=== PATIENT | female | born 1965 | race Caucasian/White ===

== ENCOUNTER 2021-02-20 19:26 | Inpatient (IN) | payer SELFPAY ==
[~2021-02-20 19:26] MED LIST: Iopamidol-370 76% 500 ML 1 ML ONE
[2021-02-20 19:48] LABS: #Basophils 0.1 thou/uL (0.0-0.2); %Basophils 0.4 % (0.0-1.0); %Eosinophils 0.2 % (0.0-10.0); %Lymphocytes 18.7 % (21.0-51.0); %Monocytes 6.1 % (0.0-10.0); %Neutrophils 74.6 % (42.0-75.0); Hemoglobin 14.8 g/dL (12.0-16.0); Mean Corpuscular Hemoglobin 31.6 pg (27.0-31.0); Mean Corpuscular Volume 90.3 fL (78.0-98.0); Mean Platelet Volume 7.5 fL (7.4-10.4); Platelet Count 377 thou/uL (130-400); RBC Distribution Width 12.7 % (11.5-14.5); Red Blood Cell (RBC) Count 4.69 mill/uL (4.20-5.40)
[2021-02-20 20:04] LABS: ALT (SGPT) 18 U/L (8-55); AST (SGOT) 12 U/L (5-34); Albumin 4.7 g/dL (3.5-5.0); Alkaline Phosphatase 78 U/L (40-110); Anion Gap 16 mmol/L (10-20); BUN (Urea Nitrogen) 17 mg/dL (9.8-20.1); Bilirubin, Total 0.4 mg/dL (0.2-1.2); Calc. Creatinine Clearance 0 mL/min (70-130); Calcium 10.3 mg/dL (7.8-10.44); Carbon Dioxide 21 mmol/L (22-29); Chloride 104 mmol/L (98-107); Globulin 2.8 g/dL (2.4-3.5); Glucose 129 mg/dL (70-105); INR-International Normal Ratio 0.9; Protein, Total 7.5 g/dL (6.0-8.3); Prothrombin Time 12.4 sec (12.0-14.7); Sodium 137 mmol/L (136-145)
[2021-02-20 20:05] LABS: PTT 25.5 sec (22.9-36.1)
[2021-02-20] MEDS ORDERED: Aspirin 81 mg Enteric Coated Tablet ONE (22:34)
[2021-02-21 01:37] VITALS: BMI 44.9
[2021-02-21] MEDS ORDERED: Lactated Ringer's 1,000 ML IV SCH (01:45)
[2021-02-21] MEDS ORDERED: Acetaminophen 325 MG TAB PO PRN (01:45)
[2021-02-21] MEDS ORDERED: Ondansetron PF 4 MG/2 ML Vial IVP PRN (01:45)
[2021-02-21] MEDS ORDERED: Ondansetron ODT 4 MG TAB SL PRN (01:45)
[2021-02-21] MEDS ORDERED: hydrALAZINE 20 MG/ML VIAL SLOW IVP PRN (06:16)
[2021-02-21] MEDS: Lorazepam 0.5 MG TAB PO PRN (10:33)
[2021-02-21 12:35] LABS: Amphetamine Not Detected (NotDetected); Barbiturates Screen Not Detected (NotDetected); Benzodiazepine Screen Not Detected (NotDetected); Cocaine Metabolite Screen Not Detected (NotDetected); Methadone Not Detected (NotDetected); Methamphetamine Not Detected (NotDetected); Opiate Screen Not Detected (NotDetected); Oxycodone Screen Not Detected (NotDetected); Phencyclidine (PCP) Not Detected (NotDetected); THC/Cannabinoid Screen Detected (NotDetected); Tricyclic Screen Not Detected (NotDetected)
[2021-02-21] MEDS ORDERED: Lorazepam 2 MG/ML VIAL SLOW IVP SCH (14:15)
[2021-02-21] MEDS ORDERED: Clopidogrel Bisulfate 75 MG TAB PO SCH (14:30)
[2021-02-21 15:20] LABS: Magnesium 2.1 mg/dL (1.6-2.6)
[2021-02-21] MEDS: Nicotine 14 MG PATCH TD SCH (17:36)
[2021-02-21] MEDS: Cyclobenzaprine 10 MG TAB PO PRN (17:50)
[2021-02-21] MEDS: Atorvastatin Calcium 40 MG TAB PO SCH (20:46)
[2021-02-22] MEDS: Cyclobenzaprine 10 MG TAB PO PRN ×3 (02:12→21:22)
[2021-02-22] MEDS ORDERED: Lorazepam 2 MG/ML VIAL SLOW IVP SCH ×2 (03:15→10:45)
[2021-02-22 05:26] LABS: #Eosinphils 0.2 thou/uL (0.0-0.7); #Lymphocytes 2.4 thou/uL (1.20-3.40); #Monocytes 0.5 thou/uL (0.11-0.59); #Neutrophils 4.2 thou/uL (1.40-6.50); %Basophils 0.3 % (0.0-1.0); %Eosinophils 2.5 % (0.0-10.0); %Lymphocytes 32.3 % (21.0-51.0); %Monocytes 7.4 % (0.0-10.0); %Neutrophils 57.5 % (42.0-75.0); Hemoglobin 13.1 g/dL (12.0-16.0); Mean Corpuscular HGB CONC 34.3 g/dL (32.0-36.0); Mean Corpuscular Hemoglobin 30.9 pg (27.0-31.0); Mean Corpuscular Volume 90.3 fL (78.0-98.0); Mean Platelet Volume 7.5 fL (7.4-10.4); Platelet Count 284 thou/uL (130-400); RBC Distribution Width 12.5 % (11.5-14.5); Red Blood Cell (RBC) Count 4.25 mill/uL (4.20-5.40); White Blood Cell (WBC) Count 7.4 thou/uL (4.8-10.8)
[2021-02-22 05:51] LABS: Anion Gap 13 mmol/L (10-20); BUN (Urea Nitrogen) 21 mg/dL (9.8-20.1); Calc. Creatinine Clearance 159 mL/min (70-130); Calcium 9.3 mg/dL (7.8-10.44); Carbon Dioxide 24 mmol/L (22-29); Cardiac Risk 3.5 (Less than 4.5); Chloride 107 mmol/L (98-107); Cholesterol 182 mg/dl (< 200 Desired); Glucose 108 mg/dL (70-105); HDL Cholesterol 52 mg/dL (>60 Neg Risk); LDL Cholesterol, Calculated 96 mg/dL; Potassium 3.5 mmol/L (3.5-5.1); Sodium 140 mmol/L (136-145); Triglycerides 171 mg/dL (Less than 150)
[2021-02-22 08:31] LABS: SARS-CoV-2 PCR by NAA Not Detected (NotDetected)
[2021-02-22] MEDS: Clopidogrel Bisulfate 75 MG TAB PO SCH (09:37)
[2021-02-22] MEDS: Lorazepam 0.5 MG TAB PO PRN ×3 (09:38→21:23)
[2021-02-22] MEDS: Nicotine 14 MG PATCH TD SCH (14:28)
[2021-02-22] MEDS: Atorvastatin Calcium 40 MG TAB PO SCH (21:23)
[2021-02-23] MEDS: Cyclobenzaprine 10 MG TAB PO PRN ×3 (03:05→20:47)
[2021-02-23] MEDS: Lorazepam 0.5 MG TAB PO PRN ×2 (07:59→20:48)
[2021-02-23] MEDS: Aspirin 81 mg Enteric Coated Tablet PO SCH (08:01)
[2021-02-23] MEDS: Clopidogrel Bisulfate 75 MG TAB PO SCH (08:01)
[2021-02-23] MEDS: Amlodipine 10 MG TAB PO SCH (08:01)
[2021-02-23] MEDS: Hydrochlorothiazide 25 MG TAB PO SCH (08:01)
[2021-02-23] MEDS: Losartan 25 MG TAB PO SCH (08:01)
[2021-02-23] MEDS: Enoxaparin Sodium 40 MG/0.4 ML SYRINGE SC SCH (08:01)
[2021-02-23] MEDS ORDERED: Loratadine 10 MG TAB PO PRN (09:41)
[2021-02-23] MEDS ORDERED: Saccharomyces boulardii 250 MG CAP PO SCH (10:15)
[2021-02-23] MEDS ORDERED: levETIRAcetam 500 MG TAB PO SCH (10:15)
[2021-02-23] MEDS ORDERED: Amoxicillin/Potassium Clav 250 MG TAB PO SCH (10:15)
[2021-02-23] MEDS: Nicotine 14 MG PATCH TD SCH (10:46)
[2021-02-23] MEDS: levETIRAcetam 500 MG TAB PO SCH (20:48)
[2021-02-23] MEDS: Amoxicillin/Potassium Clav 250 MG TAB PO SCH (20:48)
[2021-02-23] MEDS: Atorvastatin Calcium 40 MG TAB PO SCH (20:48)
[2021-02-24] MEDS ORDERED: Lorazepam 2 MG/ML VIAL SLOW IVP SCH (04:15)
[2021-02-24] MEDS: Amoxicillin/Potassium Clav 250 MG TAB PO SCH ×2 (08:47→20:35)
[2021-02-24] MEDS: Enoxaparin Sodium 40 MG/0.4 ML SYRINGE SC SCH (08:47)
[2021-02-24] MEDS: Losartan 25 MG TAB PO SCH (08:48)
[2021-02-24] MEDS: Cyclobenzaprine 10 MG TAB PO PRN ×2 (08:48→20:33)
[2021-02-24] MEDS: Saccharomyces boulardii 250 MG CAP PO SCH (08:48)
[2021-02-24] MEDS: levETIRAcetam 500 MG TAB PO SCH ×2 (08:48→20:35)
[2021-02-24] MEDS: Amlodipine 10 MG TAB PO SCH (08:48)
[2021-02-24] MEDS: Aspirin 81 mg Enteric Coated Tablet PO SCH (08:49)
[2021-02-24] MEDS: Clopidogrel Bisulfate 75 MG TAB PO SCH (08:49)
[2021-02-24] MEDS: Hydrochlorothiazide 25 MG TAB PO SCH (08:49)
[2021-02-24] MEDS: Nicotine 14 MG PATCH TD SCH (08:51)
[2021-02-24] MEDS ORDERED: Lorazepam 0.5 MG TAB ONE (12:11)
[2021-02-24] MEDS: Lorazepam 0.5 MG TAB PO PRN (12:11)
[2021-02-24] MEDS: Atorvastatin Calcium 40 MG TAB PO SCH (20:34)
[2021-02-25] MEDS: Cyclobenzaprine 10 MG TAB PO PRN ×2 (01:52→08:40)
[2021-02-25] MEDS: Enoxaparin Sodium 40 MG/0.4 ML SYRINGE SC SCH (08:24)
[2021-02-25] MEDS: Amlodipine 10 MG TAB PO SCH (08:25)
[2021-02-25] MEDS: Losartan 25 MG TAB PO SCH (08:25)
[2021-02-25] MEDS: Hydrochlorothiazide 25 MG TAB PO SCH (08:25)
[2021-02-25] MEDS: Amoxicillin/Potassium Clav 250 MG TAB PO SCH (08:25)
[2021-02-25] MEDS: Clopidogrel Bisulfate 75 MG TAB PO SCH (08:25)
[2021-02-25] MEDS: levETIRAcetam 500 MG TAB PO SCH (08:25)
[2021-02-25] MEDS: Saccharomyces boulardii 250 MG CAP PO SCH (08:25)
[2021-02-25] MEDS: Aspirin 81 mg Enteric Coated Tablet PO SCH (08:25)
[2021-02-25] MEDS: Nicotine 14 MG PATCH TD SCH (08:47)
[2021-02-25 19:28] VITALS: BP 130/79; TEMP 98
== END 2021-02-25 18:55 | disposition home or self-care (01) | DRG 65 ==
LOC: ERS 19:26 → 3SE 21:21 → INTOOBSV 21:21 → OBSVTOIN 02-22 09:19
PROVIDERS: ADMIT Student in an Organized Health Care Education/Training Program; ATTEND Hospitalist
PROC: 4A10X4Z Monitoring of Central Nervous Electrical Activity, External Approach (ICD-10-PCS; principal; 2021-02-22)
PROC: 4A10X4Z Monitoring of Central Nervous Electrical Activity, External Approach (ICD-10-PCS; 2021-02-24)
DX: I63.9 Cerebral infarction, unspecified (principal); G81.94 Hemiplegia, unspecified affecting left nondominant side; E78.5 Hyperlipidemia, unspecified; I11.9 Hypertensive heart disease without heart failure; F17.200 Nicotine dependence, unspecified, uncomplicated; K21.9 Gastro-esophageal reflux disease without esophagitis; R25.1 Tremor, unspecified; F12.10 Cannabis abuse, uncomplicated; Z79.82 Long term (current) use of aspirin; Z90.710 Acquired absence of both cervix and uterus; Z79.899 Other long term (current) drug therapy
CPT/HCPCS: 36415; 36416; 70450; 70496; 70498; 70551; 80048; 80053; 80061; 80306; 83735; 84484; 85025; 85610; 85730; 93005; 93306; 95712; 95819; 95957; 96374; 96376; G0378; J1650; J2060; J2997; J7120; Q9967; U0003; U0005

== ENCOUNTER 2021-12-22 00:21 | Emergency (ER) | payer SELFPAY ==
[2021-12-22] MEDS ORDERED: Ondansetron PF 4 MG/2 ML Vial ONE (00:55)
[2021-12-22 01:15] LABS: #Eosinphils 0.1 thou/uL (0.0-0.7); #Lymphocytes 1.6 thou/uL (1.20-3.40); #Monocytes 0.7 thou/uL (0.11-0.59); #Neutrophils 7.4 thou/uL (1.40-6.50); %Basophils 0.4 % (0.0-1.0); %Eosinophils 0.6 % (0.0-10.0); %Lymphocytes 16.2 % (21.0-51.0); %Monocytes 7.1 % (0.0-10.0); %Neutrophils 75.6 % (42.0-75.0); Hemoglobin 14.5 g/dL (12.0-16.0); Mean Corpuscular HGB CONC 33.5 g/dL (32.0-36.0); Mean Corpuscular Hemoglobin 31.7 pg (27.0-31.0); Mean Corpuscular Volume 94.6 fL (78.0-98.0); Mean Platelet Volume 8.2 fL (7.4-10.4); Platelet Count 212 thou/uL (130-400); RBC Distribution Width 12.7 % (11.5-14.5); Red Blood Cell (RBC) Count 4.58 mill/uL (4.20-5.40); White Blood Cell (WBC) Count 9.8 thou/uL (4.8-10.8)
[2021-12-22 01:33] LABS: ALT (SGPT) 20 U/L (8-55); AST (SGOT) 16 U/L (5-34); Albumin 4.4 g/dL (3.5-5.0); Alkaline Phosphatase 75 U/L (40-110); Anion Gap 19 mmol/L (10-20); BUN (Urea Nitrogen) 13 mg/dL (9.8-20.1); Bilirubin, Total 0.5 mg/dL (0.2-1.2); Calc. Creatinine Clearance 0 mL/min (70-130); Calcium 9.5 mg/dL (7.8-10.44); Carbon Dioxide 16 mmol/L (22-29); Chloride 106 mmol/L (98-107); Estimated GFR 98; Glucose 118 mg/dL (70-105); Lipase 12 U/L (8-78); Magnesium 2.1 mg/dL (1.6-2.6); Protein, Total 7.4 g/dL (6.0-8.3); Sodium 137 mmol/L (136-145)
== END 2021-12-22 02:50 | disposition home or self-care (01) ==
LOC: ERS 00:21
DX: R11.2 Nausea with vomiting, unspecified (principal); I10 Essential (primary) hypertension; Z86.73 Personal history of transient ischemic attack (TIA), and cerebral infarction without residual deficits; Z79.82 Long term (current) use of aspirin; Z79.899 Other long term (current) drug therapy
CPT/HCPCS: 36415; 80053; 83690; 83735; 85025; 96361; 96374; J2405